=== PATIENT | male | born 1995 | race Caucasian/White ===

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

== ENCOUNTER 2019-06-20 09:23 | Day surgery (SDC) | payer BC, OTHER ==
[2019-06-20 09:40] VITALS: RESP 16; TEMP 97.6
[2019-06-20 09:44] VITALS: BMI 24.0
[2019-06-20] MEDS ORDERED: LACTATED RINGERS 1,000 ML IV ONE (09:50)
[2019-06-20] MEDS ORDERED: LIDOCAINE 1% 20 ML VIAL (10MG/ML) FOR IV START INTRADERMA ONE (09:50)
[2019-06-20] MEDS ORDERED: PROPOFOL 10 MG/ML 20 ML VIAL IV ONE (10:02)
--- NOTE | 2019-06-20 10:31 | P.PCN ---
Date of Procedure: 06/20/19 Description of Procedure: BRIEF HISTORY: A 24-year-old male patient who presents for outpatient EGD. He reports epigastric abdominal pain occurring predominantly during the night and described as keeping him up. He was started on omeprazole therapy and reports that since that time he has had improvement in his symptoms. EGD is being performed for evaluation of gastritis. PROCEDURE PERFORMED: Esophagogastroduodenoscopy with biopsy. PREOPERATIVE DIAGNOSIS: Gastritis, epigastric abdominal pain. ESTIMATED BLOOD LOSS: Minimal. IV sedation per anesthesia. PROCEDURE: After informed consent was obtained, the patient was brought into the endoscopy unit. IV sedation was administered by Anesthesia under continuous monitoring. Initially the Olympus GIF-190 video endoscope was inserted into the mouth. Esophagus intubated without any difficulty. It was gradually advanced into the stomach and duodenum and carefully examined. The bulb was significant for a cratered 5 mm nonbleeding ulcer with biopsies taken. The second part of the duodenum appeared normal and was biopsied. The scope at this time was withdrawn to the stomach, adequately insufflated with air, and upon careful examination, mucosa of the antrum, body, cardia and the fundus appeared normal, with biopsies of antrum and body taken. The scope was then withdrawn into the esophagus. The GE junction was located at 40 cm from the incisors. The esophagus appeared normal. There were no erosions or ulcerations seen and the patient tolerated the procedure well. IMPRESSION: 1. Nonbleeding duodenal ulcer, biopsied. 2. Duodenal biopsies, antrum and body biopsies. RECOMMENDATIONS: The findings of this examination were discussed with the patient and his mother. Omeprazole 20 mg twice daily. Await pathology from biopsies. Avoid NSAID use.
[2019-06-20 10:55] VITALS: BP 107/48; PULSE 63
== END 2019-06-20 12:02 | disposition home or self-care (01) ==
LOC: ORWHC2ENDO 09:23
PROVIDERS: ATTEND Internal Medicine
DX: K26.9 Duodenal ulcer, unspecified as acute or chronic, without hemorrhage or perforation (principal); K29.50 Unspecified chronic gastritis without bleeding; Z79.899 Other long term (current) drug therapy
CPT/HCPCS: 43239; J2704; 88305